=== PATIENT | female | born 1955 | race Caucasian/White ===

== ENCOUNTER → 2019-03-23 | Outpatient (CLI) | payer OTHER, MEDICARE ==
[~2019-03-23] MED LIST: ASPIRIN 81M81 MG/TA2 PO; BUSPAR 30MG30 MG/TAB PO; FLEXERIL 1010 MG/TAB PO; IRON 27 MG PO; LOTREL 10 MG-401 CAP PO; LUNESTA3 MG PO; MELATONIN5 M1 SL; MILK THISTLE150 MG PO; NATURAL FLAX1000 MG PO; NEURONTIN600 MG/TAB PO; NORCO 325 MG-7.1 TAB PO; OMEGA-3 1000 MG1 CAP PO; PRISTIQ100 MG PO; REMERON45 MG PO; SYNTHROID0.175 MG PO; XANAX2 MG PO
== END ==
LOC: COL.RAD 08:58
DX: R76.8 Other specified abnormal immunological findings in serum (principal); R74.8 Abnormal levels of other serum enzymes; Z90.49 Acquired absence of other specified parts of digestive tract

== ENCOUNTER → 2020-06-06 | Outpatient (CLI) | payer OTHER, MEDICARE ==
[~2020-06-06] VITALS: Ht 175.3 cm; Wt 87.2 kg
[2020-06-06] VITALS (12 sets, daily range): BP systolic 100–143; BP diastolic 60–88; PULSE 50–64
[~2020-06-06] MED LIST changes: +CALCIUM-MAGNES1 EAC1 PO; +CYCLOSET0.8 MG PO; +FOLIC ACID800 MCG PO; +INDERAL LA120 MG PO; +MULTIPLE VITAMI1 TA5 PO; +VYVANSE70 MG PO
[2020-06-06 09:04] LABS: PROTHROMBIN TIME 11.2 SECONDS (9.7-12.8)
--- NOTE | 2020-06-06 10:34 | NUR ---
PT BROUGHT INTO ROOM, PLACED ON THE TABLE AND MONITORING EQUIPMENT PLACED.
--- NOTE | 2020-06-06 11:15 | NUR ---
1049 1 MG VERSED AND 25 MCG FENTANYL GIVEN [address] BARNHART
== END ==
LOC: COL.RAD 08:24
PROVIDERS: Internal Medicine Gastroenterology
DX: K75.89 Other specified inflammatory liver diseases (principal); R76.8 Other specified abnormal immunological findings in serum
CPT/HCPCS: J2250; J3010